=== PATIENT | male | born 1940 | race Caucasian/White ===

== ENCOUNTER → 2016-09-21 | Outpatient (CLI) | payer MEDICARE, OTHER | END | disposition home or self-care (01) | LOC: LAB.O 11:19 | PROVIDERS: ATTEND Nurse Practitioner Family | DX: I10 Essential (primary) hypertension (principal) ==

== ENCOUNTER → 2017-04-03 | Outpatient (CLI) | payer MEDICARE, OTHER | END | disposition home or self-care (01) | LOC: GMAB 14:45 | PROVIDERS: ATTEND Family Medicine | DX: Z12.5 Encounter for screening for malignant neoplasm of prostate (principal); I10 Essential (primary) hypertension | CPT/HCPCS: 84443; 86140; G0103 ==

== ENCOUNTER → 2018-02-12 | Outpatient (CLI) | payer OTHER ==
--- NOTE | 2018-02-12 10:28 | RAD ---
EXAM DESCRIPTION: Pelvis, single view CLINICAL HISTORY: HIP PAIN FINDINGS/ IMPRESSION: No fracture of the proximal femora or pelvis No advanced arthrosis or focal osteochondral lesion. Normal mineralization Disc degeneration L4-5 greater to the right of midline Electronically signed by: Bobo Day MD 02/12/2018 10:27 AM CDT
--- NOTE | 2018-02-12 10:29 | RAD ---
4 views right knee. 4 views left knee. Indication: KNEE PAIN Comparison: None. Impression: Severe arthritis of the bilateral medial knee compartments with complete joint space narrowing, [id number] appearance, and cortical remodeling. Moderate osteoarthritis of the bilateral lateral and patellofemoral compartments. Mild varus angulation of the bilateral knees noted. No acute fracture the right lower left knee. Small suprapatellar knee effusions noted. Scattered vascular calcifications are present. Electronically signed by: Lizandro Corrigan MD 02/12/2018 10:27 AM CDT
--- NOTE | 2018-02-12 10:29 | RAD ---
4 views right knee. 4 views left knee. Indication: KNEE PAIN Comparison: None. Impression: Severe arthritis of the bilateral medial knee compartments with complete joint space narrowing, [id number] appearance, and cortical remodeling. Moderate osteoarthritis of the bilateral lateral and patellofemoral compartments. Mild varus angulation of the bilateral knees noted. No acute fracture the right lower left knee. Small suprapatellar knee effusions noted. Scattered vascular calcifications are present. Electronically signed by: Lizandro Corrigan MD 02/12/2018 10:27 AM CDT
== END ==
LOC: RAD 09:02
PROVIDERS: ATTEND Orthopaedic Surgery
DX: M17.11 Unilateral primary osteoarthritis, right knee (principal); M17.12 Unilateral primary osteoarthritis, left knee; M51.36 Other intervertebral disc degeneration, lumbar region; M25.561 Pain in right knee; M25.562 Pain in left knee; M25.551 Pain in right hip; M25.552 Pain in left hip

== ENCOUNTER → 2018-04-19 | Outpatient (CLI) | payer MEDICARE | LOC: LAB.O 09:54 | PROVIDERS: ATTEND Orthopaedic Surgery | DX: Z01.818 Encounter for other preprocedural examination (principal) ==

== ENCOUNTER 2018-05-08 05:26 | Inpatient (IN) | payer MEDICARE ==
--- NOTE | 2018-05-07 10:45 | HP ---
CHIEF COMPLAINT: Knee pain. HISTORY OF PRESENT ILLNESS: Mr. Veloz is a 77-year-old male with a history of severe knee pain that has been refractory to conservative measures. It has affected his daily living and because of his ongoing discomfort with failure of conservative measures, he has requested operative intervention. Because of the severity of his arthritis, he is only a candidate for total knee arthroplasty. After discussing the risks, benefits and alternatives to that, he has given informed consent for that. PAST SURGICAL HISTORY: 1. Cardiac stent placement. 2. Tonsillectomy. MEDICATIONS: 1. Metoprolol. 2. Meloxicam. 3. Memantine. 4. Losartan. 5. Donepezil. 6. Flonase. 7. Aspirin. 8. Melatonin. ALLERGIES: NO KNOWN DRUG ALLERGIES. CODE STATUS: Full code. IMMUNIZATIONS: Up to date. FAMILY HISTORY: None pertinent to today's complaint. SOCIAL HISTORY: The patient does not smoke or use any illicit drugs. He drinks on occasion. REVIEW OF SYSTEMS: Negative except as indicated in the History of Present Illness. PHYSICAL EXAMINATION: VITAL SIGNS: Blood pressure 180/79. Pulse 80. Height 5'7". Weight 217 pounds. MENTAL STATUS: The patient is awake, alert, and is able to give a good history and participate in the physical. The patient is oriented to person, place and time. SKIN: Normal tone and turgor. HEENT: Normocephalic, atraumatic. Pupils equal, round and reactive. Mucosal membranes are moist. NECK: Normal range of motion. No thyromegaly, no lymphadenopathy. CHEST: Normal respiratory excursion. CARDIAC: Regular rate and rhythm. No murmurs, rubs or gallops. MUSCULOSKELETAL: The bilateral upper extremities show full active range of motion without pain. He has intact sensation in the extremities and they are warm and well perfused. He has 5/5 strength and no deformity. The bilateral lower extremities show full range of motion in the hips. He has range of motion in the knees from full extension to about 115 degrees on both sides with obvious varus deformities. He has crepitus throughout his range of motion. He has no varus/valgus or anterior/posterior laxity. Strength is 5/5. They are warm and well perfused. IMAGING: X-rays show severe arthritis. ASSESSMENT: 1. Osteoarthritis. PLAN: The plan at this point is for total knee arthroplasty. He does state that his right is worse than the left, therefore, we will proceed with the right. We have discussed the risks, benefits, and alternatives to that and the patient has given informed consent. [facility][id number] [facility]
[2018-05-08] MEDS ORDERED: LACTATED RINGERS 1,000 ML ONE (05:44)
[2018-05-08] MEDS ORDERED: TRANEXAMIC ACID 1,000 MG/10 ML VIAL ONE ×2 (05:44→05:45)
[2018-05-08] MEDS ORDERED: SODIUM CHL 0.9% 100ML MINI-BAG 100 ML IVPB ONE (05:44)
[2018-05-08] MEDS ORDERED: SODIUM CHLORIDE 0.9% 250ML 250 ML ONE ×3 (05:44→19:43)
[2018-05-08] MEDS ORDERED: ceFAZolin SODIUM 1 GM VIAL ONE ×2 (05:44→06:27)
[2018-05-08] MEDS ORDERED: VANCOMYCIN HCL INJ 1,000 MG VIAL IVPB ONE ×3 (05:44→19:43)
[2018-05-08] MEDS ORDERED: SODIUM CHLORIDE 0.9% 100ML 100 ML IVPB ONE (05:45)
[2018-05-08] MEDS ORDERED: MIDAZOLAM INJ 2 MG/2 ML VIAL ONE (06:41)
[2018-05-08] MEDS ORDERED: MORPHINE SULF *EPIDURAL* 1 MG/ML VIAL ONE (06:41)
[2018-05-08] MEDS ORDERED: fentaNYL CITRATE INJ 50 MCG/ML AMP ONE (06:41)
[2018-05-08] MEDS: ceFAZolin SODIUM 1 GM VIAL ONE ×2 (07:45→09:03)
[2018-05-08] MEDS: BUPIVACAINE LIPOSOME 13.3 MG/ML VIAL INJ ONE ×2 (07:46→09:03)
[2018-05-08] MEDS: BUPIVACAINE 0.5% 30 ML VIAL INJ ONE ×2 (07:46→09:03)
[2018-05-08] MEDS: VANCOMYCIN HCL INJ 1,000 MG VIAL IVPB ONE ×2 (07:46→09:03)
[2018-05-08] MEDS ORDERED: BUPIVACAINE LIPOSOME 13.3 MG/ML VIAL INJ ONE (08:36)
[2018-05-08] MEDS ORDERED: ELECTROLYTE-A 1,000 ML IVS ONE (08:58)
[2018-05-08] MEDS ORDERED: DEX 5% W/NACL 0.45% 1000ML 1,000 ML IVS PRN (09:25)
[2018-05-08] MEDS ORDERED: ACETAMINOPHEN 500 MG TAB PO PRN (09:25)
[2018-05-08] MEDS ORDERED: ONDANSETRON INJ 4 MG/2 ML VIAL IV PRN (09:25)
[2018-05-08] MEDS ORDERED: ACETAMINOPHEN 325 MG TAB PO PRN (09:25)
[2018-05-08] MEDS ORDERED: TEMAZEPAM 15 MG CAP PO PRN (09:25)
[2018-05-08] MEDS ORDERED: TRANEXAMIC ACID INJ 1,000 MG in SODIUM CHLORIDE 0.9% 100ML 100 ML IVPB ONE (09:25)
[2018-05-08] MEDS ORDERED: MORPHINE SULFATE INJ 10 MG/ML VIAL IM PRN (09:25)
[2018-05-08] MEDS ORDERED: PROMETHAZINE HCL INJ 12.5 MG in SODIUM CHLORIDE 0.9% 50ML 50 ML IVPB PRN (09:25)
[2018-05-08] MEDS ORDERED: ZOLPIDEM TARTRATE 5 MG TAB PO PRN (09:25)
[2018-05-08] MEDS ORDERED: MORPHINE SULFATE INJ 10 MG/ML VIAL IV PRN (09:25)
[2018-05-08] MEDS ORDERED: MAGNESIUM HYDROXIDE 30 ML UD PO PRN (09:25)
[2018-05-08] MEDS ORDERED: BISACODYL SUPPOSITORY 10 MG PR PRN (09:25)
[2018-05-08] MEDS ORDERED: BENZOCAINE-MENTH LOZ (CEPACOL) 1 EA LOZ MT PRN (09:25)
[2018-05-08] MEDS ORDERED: SODIUM CHLORIDE 0.9% (FLUSH) 10 ML SYG IV PRN (09:25)
[2018-05-08] MEDS ORDERED: NALOXONE HCL INJ 0.4 MG/ML VIAL IV PRN (09:25)
[2018-05-08] MEDS ORDERED: PROMETHAZINE HCL INJ 25 MG in SODIUM CHLORIDE 0.9% 50ML 50 ML IVPB PRN (09:25)
[2018-05-08] MEDS ORDERED: ALUMINUM & MAGNESIUM HYDROXIDE 30 ML UD PO PRN (09:25)
[2018-05-08] MEDS ORDERED: traMADol HCL 50 MG TAB PO PRN (09:25)
[2018-05-08] MEDS ORDERED: MORPHINE PCA 1 MG/ML 100 ML BAG IVPB SCH (09:30)
[2018-05-08] MEDS ORDERED: IV SET AND CAP CHANGE INJ INJ SCH (09:30)
[2018-05-08] MEDS ORDERED: raNITIdine HCL INJ 25 MG/ML VIAL IV ONE (10:00)
[2018-05-08] MEDS ORDERED: ePHEDrine SULF 50 MG/ML IV ONE (10:00)
[2018-05-08] MEDS ORDERED: METOCLOPRAMIDE HCL INJ 10 MG/2 ML VIAL IV ONE (10:00)
[2018-05-08] MEDS ORDERED: PROPOFOL 200 MG/20 ML VIAL IV ONE (10:00)
[2018-05-08] MEDS ORDERED: LIDOCAINE 1% 10 ML VIAL INJ ONE (10:00)
[2018-05-08] MEDS ORDERED: DEXAMETHASONE INJ 10 MG/ML VIAL IV ONE (10:00)
[2018-05-08] MEDS ORDERED: GLYCOPYRROLATE 0.2 MG/ML VIAL IV ONE (10:00)
--- NOTE | 2018-05-08 11:39 | RAD ---
EXAM DESCRIPTION: Knee,Right 2 or More Views CLINICAL HISTORY: 77 years Male, TKA TECHNIQUE: 2 views of the right knee were performed. COMPARISON: Radiographs of the right knee dated 02/12/2018. FINDINGS: The visualized bones appear well mineralized. No acute fracture or dislocation. Changes of total knee arthroplasty are identified. There is surrounding soft tissue swelling and subcutaneous emphysema consistent with recent surgery. IMPRESSION: Changes of right total knee arthroplasty with expected postsurgical changes in the surrounding soft tissues. Electronically signed by: Destiny Marcum MD 05/08/2018 11:38 AM [facility]
[2018-05-08] MEDS ORDERED: ceFAZolin SODIUM 2 GRAMS PREMI 50 ML IVPB ONE ×2 (15:42→19:43)
[2018-05-08] MEDS: ceFAZolin SODIUM 2 GRAMS PREMI 2 GM in PREMIX BAG 1 BAG IVPB SCH (15:48)
[2018-05-08] MEDS: CELECOXIB 100 MG CAP PO SCH (17:11)
[2018-05-08] MEDS: VANCOMYCIN HCL INJ 1,000 MG in SODIUM CHLORIDE 0.9% 250ML 250 ML IVPB SCH (17:12)
[2018-05-08] MEDS ORDERED: LORATADINE 10 MG TAB PO SCH (17:15)
[2018-05-08] MEDS ORDERED: ENOXAPARIN SODIUM 30 MG/0.3 ML SYG SUBCU ONE (19:43)
[2018-05-08] MEDS: MEMANTINE 10 MG TAB PO SCH (20:33)
[2018-05-08] MEDS: DOCUSATE CALCIUM 240 MG CAP PO SCH (20:33)
[2018-05-08] MEDS ORDERED: NON-FORMULARY MEDICATION 1 EA MIS (Melatonin [Melatonin] 5 MG) PO SCH (21:00)
[2018-05-08] MEDS ORDERED: NON-FORMULARY MEDICATION 1 EA MIS (Donepezil Hydrochloride [Donepezil Hcl] 23 MG) PO SCH (21:00)
--- NOTE | 2018-05-08 22:11 | CONS ---
DATE OF CONSULTATION: 05/08/18 SUPERVISING PHYSICIAN: Osorio Brody M.D. REASON FOR CONSULTATION: Total right knee arthroplasty. HISTORY OF PRESENT ILLNESS: Mr. Veloz is a 77 year-old male patient that has a long history of severe knee pain that is not responding to any conservative measures to any degree. It is starting to affect his daily living and due to ongoing discomfort and failure of treatment, he has requested that Dr. Finley perform intraoperative intervention with a total right knee arthroplasty. He was admitted today for an elective total right knee arthroplasty. He had no intraoperative complications and was followed postoperatively. He was alert at time of admission to the Medical/Surgical floor. PAST MEDICAL HISTORY: 1. Hyperlipidemia. 2. Hypertension. 3. Diverticulosis. 4. Hiatal hernia. 5. Benign prostatic hypertrophy. 6. Alzheimer's with mild dementia. PAST SURGICAL HISTORY: 1. Appendectomy. 2. Tonsillectomy and adenoidectomy. 3. Hernia repair, right inguinal. 4. Right rotator cuff repair. 5. Cardiac stent placement. 6. Colonoscopy in 2011. HOME MEDICATIONS: 1. Aspirin 81 mg daily. 2. Melatonin 5 mg at bedtime. 3. Losartan 25 mg daily. 4. Flonase 50 mcg both nostrils daily. 5. Crista 180 mg as needed. 6. Donepezil 23 mg at bedtime. 7. Metoprolol succinate extended release 12.5 mg daily. 8. Namenda 10 mg b.i.d. 9. Mobic 7.5 mg b.i.d. ALLERGIES: NO KNOWN DRUG ALLERGIES. FAMILY HISTORY: Noncontributory. SOCIAL HISTORY: The patient is a former cigarette smoker who quit in 1998. He is and lives in [place]. He is retired. He denies any illicit or alcohol usage. REVIEW OF SYSTEMS: CONSTITUTIONAL: Negative for any fatigue, fevers, chills, general malaise, unintentional weight loss. HEENT: Negative for any nasal congestion, ear aches, sore throat, vision changes. RESPIRATORY: Negative for any cough, dyspnea, wheezing. CARDIOVASCULAR: Negative for chest pains, pedal edema, palpitations, syncopal episodes or exertional dyspnea. GASTROINTESTINAL: Negative for any abdominal pains, constipation, diarrhea, nausea or vomiting. MUSCULOSKELETAL: As noted in History of Present Illness. Positive for both left knee and right knee arthralgias with recent repair as noted above in History of Present Illness. NEUROLOGIC: Negative for any dizziness, headaches, syncopal episodes, ataxia. Positive for dementia. PHYSICAL EXAMINATION: VITAL SIGNS: Temperature 97.8, pulse 54, blood pressure 165/80, respirations 16, satting 95% on room air. Admission weight 96.25 kg. GENERAL: The patient is resting in bed with right knee in the CPM. Iceman is in place. He is alert, somewhat confused but is easily reoriented. HEENT: Tympanic membranes are clear bilaterally. Oropharynx is pink and moist without any lesions. NECK: Supple, non-tender with full range of motion. No jugular venous distention. CHEST: Clear to auscultation without any rhonchi, wheezing or rales. HEART: Regular rate and rhythm with no appreciable murmurs, gallops, or rubs. ABDOMEN: Soft, non-tender. Positive bowel sounds. EXTREMITIES: Right knee has a bulky dressing in place. Distally pulses were strong, capillary refill is brisk bilaterally. NEUROLOGIC: Cranial nerves II-XII are grossly intact. Facial features were symmetrical. Extraocular movements are within normal limits. He is alert and oriented times three. LABORATORY: Postoperative H&H is pending. ASSESSMENT: 1. Advanced osteoarthritis of the right knee failing outpatient conservative measures requiring elective total left knee arthroplasty for symptom control being postoperative day 0, surgery performed by Dr. Lowell Finley. 2. History of hypertension. 3. History of diverticulosis. 4. History of benign prostatic hypertrophy. 5. History of Alzheimer's dementia. PLAN: Will follow the patient as he progresses through his postoperative phase, rehabilitation and physical therapy efforts. Will defer orthopedic decisions to Dr. Finley and Physical Therapy. I will resume his home medications once those have been updated and verified. He will continue on DVT prophylaxis per protocol. Will anticipate length of stay to be 2 to 3 days with outpatient management yet to be determined prior to discharge which we will need to discuss. Again, until the patient can transition to outpatient management will continue to monitor and treat as needed. [facility][id number] [facility]
[2018-05-08] MEDS: ENOXAPARIN SODIUM 30 MG/0.3 ML SYG SUBCU SCH (22:33)
[2018-05-09] MEDS: ceFAZolin SODIUM 2 GRAMS PREMI 2 GM in PREMIX BAG 1 BAG IVPB SCH ×2 (00:03→08:23)
[2018-05-09] MEDS: CYCLOBENZAPRINE HCL 10 MG TAB PO PRN ×2 (02:39→10:35)
[2018-05-09] MEDS: VANCOMYCIN HCL INJ 1,000 MG in SODIUM CHLORIDE 0.9% 250ML 250 ML IVPB SCH (06:25)
[2018-05-09] MEDS ORDERED: FLUTICASONE PROP 0.05% NASAL 16 GM BTTL ONE (07:14)
[2018-05-09] MEDS ORDERED: ceFAZolin SODIUM 2 GRAMS PREMI 50 ML IVPB ONE (07:16)
[2018-05-09] MEDS: CELECOXIB 100 MG CAP PO SCH ×2 (08:23→17:05)
[2018-05-09] MEDS ORDERED: FLUTICASONE PROPIONATE 50 MCG SCH (09:00)
[2018-05-09] MEDS: METOPROLOL SUCCINATE XL 25 MG TAB PO SCH (09:36)
[2018-05-09] MEDS: MAGNESIUM OXIDE 400 MG TAB PO SCH (09:37)
[2018-05-09] MEDS: MEMANTINE 10 MG TAB PO SCH ×2 (09:37→20:11)
[2018-05-09] MEDS: ASPIRIN (CHEWABLE) 81 MG TAB PO SCH (09:37)
[2018-05-09] MEDS: LOSARTAN POTASSIUM 25 MG TAB PO SCH (09:37)
[2018-05-09] MEDS: ENOXAPARIN SODIUM 30 MG/0.3 ML SYG SUBCU SCH ×2 (11:55→22:19)
[2018-05-09] MEDS ORDERED: diphenhydrAMINE HCL 50 MG/ML VIAL IV PRN (19:07)
[2018-05-09] MEDS ORDERED: HALOPERIDOL LACTATE INJ 5 MG/ML VIAL IM PRN (19:07)
[2018-05-09] MEDS: HYDROcodone 5MG/APAP 325MG 1 EA TAB PO PRN (19:12)
[2018-05-09] MEDS ORDERED: DONEPEZIL HCL 5 MG TAB ONE (19:38)
[2018-05-09] MEDS ORDERED: cloNIDine HCL 0.1 MG TAB ONE (20:07)
[2018-05-09] MEDS ORDERED: cloNIDine HCL 0.1 MG TAB PO ONE ×2 (20:09→21:08)
[2018-05-09] MEDS: DOCUSATE CALCIUM 240 MG CAP PO SCH (20:11)
[2018-05-09] MEDS: MELATONIN 3 MG TAB PO SCH (20:12)
[2018-05-09] MEDS: DONEPEZIL HCL 5 MG TAB PO SCH (20:12)
--- NOTE | 2018-05-09 21:27 | PN ---
DATE: 05/09/18 SUPERVISING PHYSICIAN: Osorio Brody M.D. SUBJECTIVE: The patient is sitting up in bed. He is eating his meal. He has no complaints at this time but he is also somewhat confused as he has chronic dementia. He denies any pain other than he said he has not liked to do his therapy. Nursing reported that he was somewhat agitated during the night and received some Ativan which was helpful. OBJECTIVE: VITAL SIGNS: He is afebrile with a temperature of 98.1, heart rate 62, blood pressure 130/73, respiratory rate 18, O2 sat 93% on room air. RESPIRATORY: Essentially clear to auscultation bilaterally. CARDIAC: Regular rate and rhythm. GASTROINTESTINAL: Abdomen is soft, nondistended, non-tender. Bowel sounds are positive. EXTREMITIES: Bilateral pedal pulses are palpable at +2. He has an Christiano bandage and dressing to his right knee that is dry and intact. NEUROLOGIC: He is awake and alert but oriented to person only. LABORATORY: Hemoglobin 13.5, hematocrit 0.5. All other labs and films have been reviewed via the EMR. ASSESSMENT: 1. Advanced osteoarthritis of the right knee failing outpatient conservative measures requiring elective total right knee arthroplasty performed by Dr. Lowell Finley, orthopedic surgeon. Postoperative day #1. 2. History of hypertension. 3. History of diverticulosis. 4. History of benign prostatic hypertrophy. 5. History of Alzheimer's dementia. PLAN: We will continue present supportive care. Will monitor him overnight to see if he needs any medications for his agitation. Orthopedic issues will be per Dr. Lowell Finley, orthopedic surgeon. He will continue with his physical therapy for strengthening and conditioning with Physical Therapy. He had a Velez catheter that had to be reinserted and we will leave that a day or 2 until he is somewhat more mobile, and at that point we will do some bladder training and discontinue the Velez at that time. We will continue to monitor him closely and follow as needed. Dr. Brody is the collaborating physician available for consultation. [facility][id number] [facility]
[2018-05-09] MEDS ORDERED: cloNIDine HCL 0.1 MG TAB PO PRN (22:12)
[2018-05-10] MEDS: HYDROcodone 5MG/APAP 325MG 1 EA TAB PO PRN ×3 (00:14→15:04)
[2018-05-10] MEDS: CYCLOBENZAPRINE HCL 10 MG TAB PO PRN ×2 (04:38→20:50)
[2018-05-10] MEDS: CELECOXIB 100 MG CAP PO SCH ×2 (08:10→16:39)
[2018-05-10] MEDS: METOPROLOL SUCCINATE XL 25 MG TAB PO SCH (08:27)
[2018-05-10] MEDS: MEMANTINE 10 MG TAB PO SCH ×2 (08:27→20:50)
[2018-05-10] MEDS: ASPIRIN (CHEWABLE) 81 MG TAB PO SCH (08:28)
[2018-05-10] MEDS: FLUTICASONE PROP 0.05% NASAL 16 GM BTTL BNAS SCH (08:28)
[2018-05-10] MEDS: MAGNESIUM OXIDE 400 MG TAB PO SCH (08:28)
[2018-05-10] MEDS: LOSARTAN POTASSIUM 25 MG TAB PO SCH (08:28)
[2018-05-10] MEDS: SODIUM CHLORIDE 0.9% (FLUSH) 10 ML SYG IV SCH ×2 (08:31→20:50)
[2018-05-10] MEDS: ENOXAPARIN SODIUM 30 MG/0.3 ML SYG SUBCU SCH ×2 (12:01→22:38)
--- NOTE | 2018-05-10 13:32 | PN ---
SUPERVISING PHYSICIAN: Nely Brody MD DATE: 05/10/18 SUBJECTIVE: The patient is sitting in his recliner in his hospital room. He has just finished his meal. He is much less confused today than he was yesterday. He denies any shortness of breath, nausea or vomiting. He does say his knee hurts, but not more than he expected. It was reported that he did well at his physical therapy today, much better than yesterday. OBJECTIVE: VITAL SIGNS: Temperature 97.9. Heart rate 61. Blood pressure 95/58. Respiratory rate 16. O2 saturation 91% on room air. RESPIRATORY: Essentially clear to auscultation bilaterally. CARDIAC: Regular rate and rhythm. GASTROINTESTINAL: Abdomen is soft, nondistended, nontender. Bowel sounds are positive. EXTREMITIES: There is an island dressing on his right knee that is dry and intact. There is very minimal edema around the knee with no erythema. Bilateral pedal pulses are palpable at +2. NEUROLOGIC: Awake, alert and oriented to person and place only. LABORATORY: There are no labs and films to report at this time. ASSESSMENT: 1. Severe osteoarthritis of the right knee failing outpatient conservative measures requiring elective total right knee arthroplasty performed by Dr. Lowell Finley, orthopedic surgeon. Postoperative day #2. 2. History of hypertension. 3. History of diverticulosis. 4. History of benign prostatic hypertrophy. 5. History of Alzheimer's dementia. PLAN: We will continue present supportive care. We will encourage good pulmonary hygiene. Orthopedic issues will be per Dr. Lowell Finley. He will continue his physical therapy for strengthening and conditioning. We will plan for him to be discharged from the Acute Care setting tomorrow and be readmitted to Swing Bed status at that time for continuing rehab for strengthening and conditioning. We will continue to monitor the patient closely and follow as needed. #[id number] [facility]
[2018-05-10] MEDS: DOCUSATE CALCIUM 240 MG CAP PO SCH (20:50)
[2018-05-10] MEDS: MELATONIN 3 MG TAB PO SCH (20:50)
[2018-05-10] MEDS: DONEPEZIL HCL 5 MG TAB PO SCH (20:50)
[2018-05-11 07:26] VITALS: BP 167/73; TEMP 98; O2SAT 93
[2018-05-11] MEDS: FLUTICASONE PROP 0.05% NASAL 16 GM BTTL BNAS SCH (07:56)
[2018-05-11] MEDS: ASPIRIN (CHEWABLE) 81 MG TAB PO SCH (07:57)
[2018-05-11] MEDS: METOPROLOL SUCCINATE XL 25 MG TAB PO SCH (07:57)
[2018-05-11] MEDS: CELECOXIB 100 MG CAP PO SCH (07:57)
[2018-05-11] MEDS: MAGNESIUM OXIDE 400 MG TAB PO SCH (07:58)
[2018-05-11] MEDS: MEMANTINE 10 MG TAB PO SCH (07:58)
[2018-05-11] MEDS: LOSARTAN POTASSIUM 25 MG TAB PO SCH (08:00)
[2018-05-11] MEDS: SODIUM CHLORIDE 0.9% (FLUSH) 10 ML SYG IV SCH (08:02)
[2018-05-11] MEDS: HYDROcodone 5MG/APAP 325MG 1 EA TAB PO PRN (08:10)
--- NOTE | 2018-05-11 08:31 | OP ---
DATE OF PROCEDURE: 05/08/18 PREOPERATIVE DIAGNOSIS: 1. Osteoarthritis. POSTOPERATIVE DIAGNOSIS: 1. Osteoarthritis. PROCEDURE: 1. Total knee arthroplasty. SURGEON: Lowell Filney MD. BRAILLE TYPIST: Harpreet Wiley CST, SA-C. ANESTHESIA: General anesthesia. COMPLICATIONS: None. FINDINGS: Severe arthritis with varus deformity. INDICATION: Mr. Veloz has a long history of knee pain that has failed conservative measures. Because of his ongoing pain, he has requested operative intervention. After discussing the risks, benefits and alternatives to that, the patient has given informed consent for total knee arthroplasty. PROCEDURE: The patient was brought to the Operating Room and placed in supine position. General anesthesia was induced and the patient's leg was sterilely prepped and draped. Following prepping and draping, the distal femur was exposed and using an intramedullary guide, the distal femoral cut was made. The appropriate sized cutting block was measured, pinned into place, and the anterior, posterior, and chamfer cuts were made. The ACL was transected and the tibia was subluxed. Both the medial and lateral menisci were removed. An intramedullary guide was used to make the proximal tibial cut. The appropriate sized base plate was placed and a trial polyethylene was placed. The trial femur was placed, the knee was reduced, and the knee was taken through a range of motion. The knee was stable in anterior, posterior, varus and valgus stress. The patella tracked anatomically without evidence of subluxation or dislocation. After trialing, the trial components were removed and the bony surfaces were thoroughly irrigated with saline. Following irrigation, the surfaces were dried and the final components were cemented into place. The excess cement was removed and the remaining cement was allowed to cure. The knee was again taken through a range of motion to confirm stability. The wound was then irrigated with saline and closure was performed using PDS to approximate the arthrotomy followed by closure of the subcutaneous tissues with a combination of running and interrupted Monocryl sutures. Sterile dressing was placed. The patient was awoken from anesthesia and taken to Recovery. POSTOPERATIVE PLAN: The patient will be weight-bearing as tolerated on postoperative day 1. COMPONENTS: [employer] Triathlon knee, size 5 femur, size 6 tibia, 13 mm insert. #[id number] [facility]
--- NOTE | 2018-05-11 08:36 | PN ---
DATE: 05/08/18 POSTOPERATIVE CHECK SUBJECTIVE: Mr. Veloz is doing well. His pain is well controlled. OBJECTIVE: Afebrile. Vital signs stable. Dressing is clean, dry and intact. ASSESSMENT: Status post total knee arthroplasty. PLAN: He will begin weightbearing as tolerated on postoperative day 1. #[id number] [facility]
--- NOTE | 2018-05-11 08:37 | PN ---
DATE: 05/09/18 SUBJECTIVE: Mr. Veloz is having a little bit of confusion, but this is consistent with his dementia that is baseline. OBJECTIVE: Afebrile. Vital signs stable. Wound is clean. There are no signs or symptoms of infection. ASSESSMENT: Status post total knee arthroplasty. PLAN: He will continue with weightbearing as tolerated and increase the CPM as tolerated. #[id number] [facility]
--- NOTE | 2018-05-11 08:38 | PN ---
DATE: 05/10/18 SUBJECTIVE: Mr. Veloz is doing well and his mental status has improved. OBJECTIVE: Afebrile. Vital signs stable. Wound is clean. There are no signs or symptoms of infection. ASSESSMENT: Status post total knee arthroplasty. PLAN: The plan at this point is for him to continue with weightbearing as tolerated and CPM. We are going to get him onto Swing Bed when he qualifies. #[id number] [facility]
--- NOTE | 2018-05-11 17:37 | DS ---
SUPERVISING PHYSICIAN: Osorio Brody M.D. DISCHARGE DIAGNOSIS: 1. Severe osteoarthritis of the right knee failing outpatient conservative measures requiring elective total right knee arthroplasty performed by Dr. Lowell Finley, orthopedic surgeon. Postoperative day #3. 2. History of hypertension. 3. History of diverticulosis. 4. History of benign prostatic hypertrophy. 5. History of Alzheimer's dementia. HISTORY OF PRESENT ILLNESS: This is a 77 year-old male patient who was admitted to the hospital for elective total right knee arthroplasty to be performed by Dr. Lowell Finley, orthopedic surgeon. He has a long history of severe knee pain that was not responding to any conservative measures. It was affecting his activities of daily living and due to this ongoing discomfort as well as failure of treatment, he requested Dr. Finley, orthopedic surgeon, to perform right total knee arthroplasty. Intraoperatively he had no complications. HOSPITAL COURSE: Postoperatively he initially had some confusion on the first day postoperative. He had a difficult time with his physical therapy. Most likely it was due to his anesthesia. The second day he was much better after he had rested all night long. His vital signs remained stable. His hemoglobin was 13.5 and hematocrit 40.5. He is at the point now that he is stable and can be discharged from the Acute Care setting and readmitted to the hospital for Swing Bed for continuing strengthening and conditioning. DISCHARGE PLAN: The patient will be discharged from the Acute Care setting and readmitted to the hospital for Swing Bed. His orthopedic issues will be per Dr. Lowell Finley, orthopedic surgeon. He will continue with his physical therapy for strengthening and conditioning. He will resume his previous medications plus he will have Cyclobenzaprine for muscle spasms as well as [place] for pain. He will complete 9 additional days of 10 mg Xarelto. He will have followup with Dr. Finley within 2 weeks. We will monitor him closely and follow as needed. DISCHARGE MEDICATIONS: 1. Metoprolol. 2. Namenda. 3. Mobic. 4. Melatonin. 5. Losartan. 6. Fluticasone nasal. 7. Fexofenadine. 8. Donepezil. 9. Aspirin. 10. Cyclobenzaprine. 11. Docusate calcium. 12. Hydrocodone. 13. Zolpidem. 14. Xarelto. #[id number] [facility]
[2018-05-11] MEDS ORDERED: BISACODYL SUPPOSITORY 10 MG PR ONE (21:00)
[2018-05-11] MEDS ORDERED: MAGNESIUM HYDROXIDE 30 ML UD PO ONE (21:00)
== END 2018-05-11 09:56 | disposition swing bed (61) | DRG 470 ==
LOC: AMB 05:26 → MS 11:25
PROVIDERS: ADMIT Orthopaedic Surgery; ATTEND Orthopaedic Surgery
PROC: 0SRC0J9 Replacement of Right Knee Joint with Synthetic Substitute, Cemented, Open Approach (ICD-10-PCS; principal; 2018-05-08 07:12)
DX: M17.11 Unilateral primary osteoarthritis, right knee (principal); I10 Essential (primary) hypertension; N40.0 Benign prostatic hyperplasia without lower urinary tract symptoms; G30.9 Alzheimer's disease, unspecified; F02.80 Dementia in other diseases classified elsewhere, unspecified severity, without behavioral disturbance, psychotic disturbance, mood disturbance, and anxiety; E78.5 Hyperlipidemia, unspecified; T88.59XA Other complications of anesthesia, initial encounter; T41.295A Adverse effect of other general anesthetics, initial encounter; Y92.230 Patient room in hospital as the place of occurrence of the external cause; Z79.82 Long term (current) use of aspirin; Z87.891 Personal history of nicotine dependence

== ENCOUNTER 2018-05-11 10:00 | Inpatient (IN) | payer MEDICARE ==
[2018-05-11] MEDS ORDERED: ACETAMINOPHEN 500 MG TAB PO PRN (12:25)
[2018-05-11] MEDS ORDERED: MAGNESIUM HYDROXIDE 30 ML UD PO PRN (12:25)
[2018-05-11] MEDS ORDERED: HYDROcodone 5MG/APAP 325MG 1 EA TAB PO PRN (12:25)
[2018-05-11] MEDS ORDERED: TEMAZEPAM 15 MG CAP PO PRN (12:25)
[2018-05-11] MEDS ORDERED: SODIUM PHOS/BIPHOS ENEMA ADULT 133 ML BTTL PR PRN (12:25)
[2018-05-11] MEDS ORDERED: ZOLPIDEM TARTRATE 5 MG TAB PO PRN (12:30)
[2018-05-11] MEDS ORDERED: LORATADINE 10 MG TAB PO PRN (12:30)
[2018-05-11] MEDS: HYDROcodone 5MG/APAP 325MG 1 EA TAB PO PRN (17:35)
--- NOTE | 2018-05-11 19:37 | HP ---
SUPERVISING PHYSICIAN: Osorio Brody M.D. CHIEF COMPLAINT: Status post right total knee arthroplasty. Admission for Swing Bed. HISTORY OF PRESENT ILLNESS: This is a 77 year-old male patient that had a right total knee arthroplasty on 05/08/[address] Lowell Finley, orthopedic surgeon. He had no problems intraoperatively and was seen in the hospital postoperatively. He met his physical therapy goals and today he was discharged from the Acute Care setting and will be readmitted to the hospital for Swing Bed for strengthening and conditioning status post right total knee arthroplasty. PAST MEDICAL HISTORY: 1. Hyperlipidemia. 2. Hypertension. 3. Diverticulosis. 4. Hiatal hernia. 5. Benign prostatic hypertrophy. 6. Alzheimer's with mild dementia. PAST SURGICAL HISTORY: 1. Appendectomy. 2. Tonsillectomy and adenoidectomy. 3. Hernia repair, right inguinal. 4. Right rotator cuff repair. 5. Cardiac stent placement. 6. Colonoscopy in 2011. HOME MEDICATIONS: 1. Aspirin 81 mg daily. 2. Melatonin 5 mg at bedtime. 3. Losartan 25 mg daily. 4. Flonase 50 mcg both nostrils daily. 5. Crista 180 mg as needed. 6. Donepezil 23 mg at bedtime. 7. Metoprolol succinate extended release 12.5 mg daily. 8. Namenda 10 mg b.i.d. 9. Mobic 7.5 mg b.i.d. ALLERGIES: NO KNOWN DRUG ALLERGIES. FAMILY HISTORY: Noncontributory. SOCIAL HISTORY: The patient is a former cigarette smoker who quit in 1998. He is and lives in [place]. He is retired. He denies any illicit or alcohol usage. REVIEW OF SYSTEMS: Negative except as per History of Present Illness. PHYSICAL EXAMINATION: VITAL SIGNS: Temperature 98.1, heart rate 59, blood pressure 143/78, respiratory rate 20, O2 sat 94%. GENERAL: This is a 77 year-old male patient who is lying in his hospital bed. He is in no acute distress. HEENT: Normocephalic and atraumatic. Pupils are equal and reactive. Oropharynx is clear. RESPIRATORY: Essentially clear to auscultation bilaterally. CHEST: There is equal rise and fall of the chest with inspiration and expiration. CARDIOVASCULAR: Regular rate and rhythm. GASTROINTESTINAL: Abdomen is soft, nondistended, non-tender. Bowel sounds are positive. EXTREMITIES: No clubbing, cyanosis or edema. He has an island dressing to his right knee that is dry and intact. There is minimal swelling and erythema to that right knee. Bilateral pedal pulses are palpable at +2. NEUROLOGIC: He is awake and alert. He is oriented to person only. His son is at the bedside. LABORATORY: There are no labs or films to report at this time. ASSESSMENT: 1. Severe osteoarthritis of the right knee failing outpatient conservative measures requiring elective total right knee arthroplasty performed by Dr. Lowell Finley on 05/08/18. Postoperative day #3. 2. History of hypertension. 3. History of diverticulosis. 4. History of benign prostatic hypertrophy. 5. History of Alzheimer's dementia. PLAN: We will admit the patient to Swing Bed. He will continue with his physical therapy for strengthening and conditioning. I have restarted his home medications. We have also restarted his pain medication of Hydrocodone as well as his Xarelto for 8 additional days. He will also have Cyclobenzaprine for any muscle spasms. We will continue to follow the patient closely and treat as indicated. #[id number] [facility]
[2018-05-11] MEDS: MEMANTINE 10 MG TAB PO SCH (20:51)
[2018-05-11] MEDS: NON-FORMULARY MEDICATION 1 EA MIS (Donepezil Hydrochloride [Donepezil Hcl] 23 MG) PO SCH (20:51)
[2018-05-11] MEDS: DOCUSATE CALCIUM 240 MG CAP PO SCH (20:51)
[2018-05-11] MEDS ORDERED: NON-FORMULARY MEDICATION 1 EA MIS (Melatonin [Melatonin] 5 MG) PO SCH (21:00)
[2018-05-12] MEDS: HYDROcodone 5MG/APAP 325MG 1 EA TAB PO PRN ×2 (07:39→16:28)
[2018-05-12] MEDS: METOPROLOL SUCCINATE XL 25 MG TAB PO SCH (08:37)
[2018-05-12] MEDS: MEMANTINE 10 MG TAB PO SCH ×2 (08:38→20:44)
[2018-05-12] MEDS: FLUTICASONE PROP 0.05% NASAL 16 GM BTTL BNAS SCH (08:38)
[2018-05-12] MEDS: RIVAROXABAN 10 MG TAB PO SCH (08:38)
[2018-05-12] MEDS: LOSARTAN POTASSIUM 25 MG TAB PO SCH (08:38)
[2018-05-12] MEDS: DOCUSATE SODIUM 100 MG CAP PO SCH (08:41)
[2018-05-12] MEDS: DOCUSATE CALCIUM 240 MG CAP PO SCH (20:44)
[2018-05-12] MEDS: MELATONIN 3 MG TAB PO SCH (20:44)
[2018-05-12] MEDS: NON-FORMULARY MEDICATION 1 EA MIS (Donepezil Hydrochloride [Donepezil Hcl] 23 MG) PO SCH (20:44)
[2018-05-12] MEDS: CYCLOBENZAPRINE HCL 10 MG TAB PO PRN (20:44)
[2018-05-13] MEDS: HYDROcodone 5MG/APAP 325MG 1 EA TAB PO PRN ×3 (08:06→17:57)
[2018-05-13] MEDS: METOPROLOL SUCCINATE XL 25 MG TAB PO SCH (08:07)
[2018-05-13] MEDS: MEMANTINE 10 MG TAB PO SCH ×2 (08:07→20:10)
[2018-05-13] MEDS: FLUTICASONE PROP 0.05% NASAL 16 GM BTTL BNAS SCH (08:07)
[2018-05-13] MEDS: DOCUSATE SODIUM 100 MG CAP PO SCH (08:07)
[2018-05-13] MEDS: LOSARTAN POTASSIUM 25 MG TAB PO SCH (08:07)
[2018-05-13] MEDS: RIVAROXABAN 10 MG TAB PO SCH (08:07)
[2018-05-13] MEDS: CYCLOBENZAPRINE HCL 10 MG TAB PO PRN ×2 (09:36→20:11)
[2018-05-13] MEDS ORDERED: DONEPEZIL HCL 5 MG TAB ONE ×2 (19:35→19:43)
[2018-05-13] MEDS: NON-FORMULARY MEDICATION 1 EA MIS (Donepezil Hydrochloride [Donepezil Hcl] 23 MG) PO SCH (20:09)
[2018-05-13] MEDS: DOCUSATE CALCIUM 240 MG CAP PO SCH (20:10)
[2018-05-13] MEDS: MELATONIN 3 MG TAB PO SCH (20:10)
[2018-05-14] MEDS: HYDROcodone 5MG/APAP 325MG 1 EA TAB PO PRN ×4 (01:35→20:49)
[2018-05-14] MEDS: RIVAROXABAN 10 MG TAB PO SCH (08:19)
[2018-05-14] MEDS: MEMANTINE 10 MG TAB PO SCH ×2 (08:20→20:48)
[2018-05-14] MEDS: LOSARTAN POTASSIUM 25 MG TAB PO SCH (08:20)
[2018-05-14] MEDS: METOPROLOL SUCCINATE XL 25 MG TAB PO SCH (08:20)
[2018-05-14] MEDS: DOCUSATE SODIUM 100 MG CAP PO SCH (08:20)
[2018-05-14] MEDS: FLUTICASONE PROP 0.05% NASAL 16 GM BTTL BNAS SCH (08:21)
--- NOTE | 2018-05-14 11:21 | PN ---
DATE: 05/14/18 SUBJECTIVE: Mr. Veloz is doing well and his pain is well controlled. He has his CPM at 100 degrees right now. OBJECTIVE: Afebrile. Vital signs stable. Wound is clean. There are no signs or symptoms of infection. ASSESSMENT: Status post total knee arthroplasty. PLAN: The plan at this point is for him to continue with weightbearing as tolerated and to continue with his CPM. #[id number] [facility]D
[2018-05-14] MEDS ORDERED: DONEPEZIL HCL 5 MG TAB ONE (20:31)
[2018-05-14] MEDS: DOCUSATE CALCIUM 240 MG CAP PO SCH (20:48)
[2018-05-14] MEDS: CYCLOBENZAPRINE HCL 10 MG TAB PO PRN (20:48)
[2018-05-14] MEDS: MELATONIN 3 MG TAB PO SCH (20:48)
[2018-05-14] MEDS ORDERED: DONEPEZIL HCL 5 MG TAB PO SCH (21:00)
[2018-05-15] MEDS: HYDROcodone 5MG/APAP 325MG 1 EA TAB PO PRN ×2 (01:39→08:09)
[2018-05-15 07:18] VITALS: BP 180/80; TEMP 97.9
[2018-05-15] MEDS: DOCUSATE SODIUM 100 MG CAP PO SCH (08:07)
[2018-05-15] MEDS: LOSARTAN POTASSIUM 25 MG TAB PO SCH (08:07)
[2018-05-15] MEDS: METOPROLOL SUCCINATE XL 25 MG TAB PO SCH (08:08)
[2018-05-15] MEDS: MEMANTINE 10 MG TAB PO SCH (08:08)
[2018-05-15] MEDS: RIVAROXABAN 10 MG TAB PO SCH (08:09)
[2018-05-15] MEDS: FLUTICASONE PROP 0.05% NASAL 16 GM BTTL BNAS SCH (08:09)
[2018-05-15 12:40] VITALS: O2SAT 96
--- NOTE | 2018-05-15 13:11 | DS ---
SUPERVISING PHYSICIAN: Saravanan Maldonado MD ADMISSION DIAGNOSIS: 1. Severe osteoarthritis of the right knee status post right total knee arthroplasty performed on 05/08/18. 2. Hypertension. 3. Diverticulosis. 4. Benign prostatic hypertrophy. 5. History of Alzheimer's dementia. DISCHARGE DIAGNOSIS: 1. Severe osteoarthritis of the right knee status post right total knee arthroplasty performed on 05/08/18. 2. Hypertension. 3. Diverticulosis. 4. Benign prostatic hypertrophy. 5. History of Alzheimer's dementia. HOSPITAL COURSE: This is a Swing Bed admission for this patient as he had surgery on 05/08/18 with no complications. He was transferred to a Swing Bed admission on 05/11/18. During that time, he participated in physical therapy and progressed fairly well. Today, he will be going home in stable condition. He will be going home with no home health. He has multiple family members who can assist with his recovery in addition to the fact that he is participating with outpatient physical therapy. I have written a prescription for four more days of Xarelto 10 mg to be given. I have written discharge instructions that he needs to take this for four more days and that will complete a total of twelve days of postoperative anticoagulation as recommended for postoperative knee surgeries. He needs to followup with Dr. Brody and Dr. Finley as scheduled as well. #[id number] [facility]
== END 2018-05-15 16:40 | disposition home or self-care (01) | DRG 470 ==
LOC: MS 10:00
PROVIDERS: ADMIT Nurse Practitioner Acute Care; ATTEND Nurse Practitioner
PROC: 0SRC0J9 Replacement of Right Knee Joint with Synthetic Substitute, Cemented, Open Approach (ICD-10-PCS; principal; 2018-05-11)
DX: M17.11 Unilateral primary osteoarthritis, right knee (principal); I10 Essential (primary) hypertension; E78.5 Hyperlipidemia, unspecified; N40.0 Benign prostatic hyperplasia without lower urinary tract symptoms; G30.9 Alzheimer's disease, unspecified; F02.80 Dementia in other diseases classified elsewhere, unspecified severity, without behavioral disturbance, psychotic disturbance, mood disturbance, and anxiety; M62.838 Other muscle spasm; K57.90 Diverticulosis of intestine, part unspecified, without perforation or abscess without bleeding; Z79.82 Long term (current) use of aspirin; Z87.891 Personal history of nicotine dependence

== ENCOUNTER → 2018-08-20 | Outpatient (CLI) | payer MEDICARE ==
--- NOTE | 2018-08-20 13:53 | US ---
EXAM DESCRIPTION: Venous,Lower Extremity RT CLINICAL HISTORY: PAIN IN RT LEG COMPARISON: None. TECHNIQUE: 2D grayscale and color venous duplex Doppler evaluation of the lower extremity are obtained from groin to calf. FINDINGS: There is normal flow, augmentation to flow, and compressibility of the deep venous vasculature of the right lower extremity with no ultrasound evidence of deep venous thrombosis. IMPRESSION: No ultrasound evidence of deep venous thrombosis . Electronically signed by: Vasu Betancourt MD 08/20/2018 1:51 PM CDT
== END ==
LOC: US 12:45
PROVIDERS: ATTEND Family Medicine
DX: M79.661 Pain in right lower leg (principal); M25.571 Pain in right ankle and joints of right foot

== ENCOUNTER 2018-10-05 | Emergency (ER) | payer MEDICARE | END 2018-10-05 09:52 | disposition home or self-care (01) ==

== ENCOUNTER → 2018-10-22 | Outpatient (CLI) | payer MEDICARE | LOC: GMAE 11:22 | PROVIDERS: ATTEND Family Medicine | DX: R97.20 Elevated prostate specific antigen [PSA] (principal); I10 Essential (primary) hypertension ==

== ENCOUNTER → 2019-12-10 | Outpatient (CLI) | payer MEDICARE | END | disposition home or self-care (01) | LOC: GMAE 10:55 | PROVIDERS: ATTEND Family Medicine | DX: Z12.5 Encounter for screening for malignant neoplasm of prostate (principal); I10 Essential (primary) hypertension | CPT/HCPCS: 84443; G0103 ==